=== PATIENT | female | born 1985 | race African-American/Black ===

== ENCOUNTER 2016-06-29 02:35 | Inpatient (IN) | payer OTHER ==
--- NOTE | ~2016-06-29 | PA ---
Unit #: [id number] #: [id number] Patient: CHEY BLEVINS [id number] [facility] [address] [place] [address] [id number] MR#: [id number] NAME: CHEY BLEVINS ROOM: [facility] Age: 31 Sex: F Admission Date: 06/29/2016 : 1985 Date of Assessment: 06/29/2016 Attending Physician: Hima Butler M.D. Admitting Physician: Hima Butler M.D. Primary Care Physician: Primary Care Physician No PSYCHIATRIC ASSESSMENT DATE OF SERVICE 06/29/2016. [facility] CHIEF COMPLAINT Drug abuse. HISTORY OF PRESENT ILLNESS Ms. Blevins is a 31-year-old woman, who abuses opioids and benzodiazepines. She was seen in the emergency room, where she had to have several doses of Narcan and then she was transferred to [facility] francie Zamarripa with no reports of suicidal ideation. PAST PSYCHIATRIC HISTORY As noted, Chey has a significant drug abuse history and has been using opioids and benzodiazepines to excess. She reports no previous inpatient treatment. FAMILY PSYCHIATRIC HISTORY There is no family history of mental illness or substance abuse. SOCIAL HISTORY The patient was reportedly born premature. She denied any history of childhood abuse or neglect. She is a single woman, who has a supportive family. She is currently staying with a friend and is unemployed. PAST MEDICAL HISTORY The patient has been diagnosed recently with hepatitis C. She stated that she had "cancer" in childhood, but has been in remission since the age of 6. She also suffers from osteoporosis. MEDICATIONS None currently. ALLERGIES No known medication allergies. SUBSTANCE USE HISTORY As noted, the patient has an extensive history of chemical dependence. This includes the use of opioids on a daily basis, occasional benzodiazepines, and occasional use of synthetic substances and cocaine. Unit #: [id number] #: [id number] Patient: CHEY BLEVINS MENTAL STATUS EXAMINATION The patient presented as a disheveled woman, who appeared her stated age. She was irritable, but cooperative with the examination. Her speech was spontaneous and easily understood. Her musculoskeletal examination was calm. Her mood was irritable with a congruent affect. She was alert and fully oriented. Memory and concentration were fair to good. Thought processes were goal directed with no active psychosis. She denied SI or HI. Insight and judgment were fair. Fund of knowledge and abstraction, fair. ASSETS AND LIABILITIES The patient is generally young and healthy and has a supportive family. Liabilities include difficulty maintaining sobriety. ADMITTING DIAGNOSES AXIS I: Opioid dependence with withdrawal, uncomplicated and benzodiazepine abuse. AXIS II: No diagnosis. AXIS III: None acute. AXIS IV: AXIS V: PSYCHIATRIC PLAN The patient was admitted and placed on the opioid detox protocol with coverage for benzodiazepines as well. She will enroll in dual diagnosis groups and activities. TREATMENT GOALS Establishment of sobriety, improvement in insight, and improvement in coping skills. DISCHARGE PLANNING Follow up with chemical dependence programing of the patient's choice. ESTIMATED LENGTH OF STAY 5 days. Dictated by... Hima Butler M.D. [place] TD: 08/14/2016 18:47 JOB #: [id number] Unit #: [id number] #: [id number] Patient: CHEY BLEVINS PSYCHIATRIC ASSESSMENT Page 1 of 1 X Hima Butler MD X PSYCHIATRIC ASSESSMENT
--- NOTE | ~2016-06-29 | HP ---
Unit #: [id number] #: [id number] Patient: CHEY BLEVINS [id number] [place] [address] [id number] MR#: [id number] NAME: CHEY BLEVINS ROOM: P178 Age: 30 Sex: F Admission Date: 06/29/2016 : 1985 Attending Physician: Hima Butler M.D. Admitting Physician: Hima Butler M.D. Primary Care Physician: Primary Care Physician No HISTORY AND PHYSICAL HISTORY OF PRESENT ILLNESS Chey is a 30 year old admitted to [facility] because of her polysubstance abuse which includes opioids and benzodiazepines. PAST MEDICAL HISTORY 1. Long history of illicit substance abuse to include snorting heroin. She also abuses benzodiazepines. 2. History of withdrawal seizures. 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 4. Peripheral neuropathy. 5. Bilateral footdrop. ALLERGIES No known drug allergies. SOCIAL HISTORY Smokes 1 pack per day. Denies alcohol. Admits to a long history of poly-illicit substance abuse. FAMILY HISTORY Medically noncontributory. REVIEW OF SYSTEMS CONSTITUTIONAL: No fever or chills. HEENT: Denies any sore throat, ear pain or runny nose. CARDIOVASCULAR: Denies chest pain, irregular heart rhythm or palpitations. CHEST: Denies shortness of breath or cough. No hemoptysis. GASTROINTESTINAL: Denies nausea, vomiting, diarrhea or chronic constipation. ENDOCRINE: Denies history of increased thirst or urination. No recent significant weight loss or gain. GENITOURINARY: Denies dysuria, frequency, or hematuria. SKIN: Denies any rashes. HEMATOLOGIC: Denies history of increased bleeding or bruising. MUSCULOSKELETAL: Denies any hot, swollen joints. No generalized muscle pain. NEUROLOGIC: Denies problems with vision or speech. No frequent, severe headaches. No numbness, tingling or weakness in any extremities. Denies loss of bladder or bowel control. CURRENT MEDICATIONS Detox protocol. Unit #: [id number] #: [id number] Patient: CHEY BLEVINS PHYSICAL EXAMINATION GENERAL: Alert, thin, in no apparent distress. VITAL SIGNS: Blood pressure 100/58, heart rate 70, respirations 16, temperature 98.6. WEIGHT: 105. HEIGHT: 5 feet 0 inches. SKIN: Warm and dry without rash or lesion. HEENT: Normocephalic. TMs not viewed. Oral and nasal passages clear. Conjunctivae clear. PERRLA. EOMs intact. NECK: Supple without lymphadenopathy or thyromegaly. HEART: Regular rate and rhythm without murmur. LUNGS: Clear. ABDOMEN: Soft, nontender. : Not done. EXTREMITIES: No evidence of cyanosis, clubbing or edema. Moves her upper extremities without focal deficit. She moves her lower extremities but it is apparent from her gait that she has a bilateral footdrop. NEUROLOGICAL: Grossly within normal limits. Cranial Nerves: II: Visual samaon are intact. III, IV AND : Extraocular movements are intact. Pupils are equal, round and reactive to light. V: Facial sensation is grossly normal. VII: Facial movements and expression are normal. VIII: Auditory acuity grossly intact. IX, X: Uvula is midline. Phonation is normal. XI: Patient shrugs shoulders and turns head normally. XII: Tongue protrudes in the midline. Sensory and Motor Function: Sensory is decreased in the lower extremities. She has bilateral footdrop with significant muscle wasting in both lower extremities. Coordination: Gait is abnormal because of her footdrop. Deep Tendon Reflexes: 1+ in the upper extremities. Scant to absent in the lower extremities. IMPRESSION Psychiatric admission. RECOMMENDATIONS PSYCHIATRIC: Per psychiatrist. MEDICAL: See no contraindications to participate in facility's activities. MEDICAL PROGNOSIS Good. MEDICAL CONDITION Stable. Dictated by... Citlali Messer P.A.-C. for [place] Arias/adithya TD: 06/29/2016 22:47 JOB #: [id number] Unit #: [id number] #: [id number] Patient: CHEY BLEVINS HISTORY AND PHYSICAL Page 1 of 1 X Citlali Messer HISTORY AND PHYSICAL
--- NOTE | ~2016-06-29 | DS ---
Unit #: [id number] #: [id number] Patient: CHEY BLEVINS [id number] [facility] [address] [place] [address] [id number] MR#: [id number] NAME: CHEY BLEVINS ROOM: P1 Age: 31 Sex: F Admission Date: 06/29/2016 : 1985 Discharge Date: 06/30/2016 Attending Physician: Hima Butler M.D. Primary Care Physician: Primary Care Physician No DISCHARGE SUMMARY REASON FOR ADMISSION Chey is a 31-year woman who came in reporting increased use of heroin and had some suicidal ideation. She was unable to contract for safety in the outpatient setting and was admitted for stabilization. DIAGNOSTIC STUDIES LABORATORY DATA: Please see hospital chart. HOSPITAL COURSE Patient was admitted and placed on the benzodiazepine detox protocol with the addition of Neurontin for opiate detox. The patient was only briefly in the hospital, reporting the next day that she was "ready to go" and requesting discharge against medical advice. She said that she would stay with her mother and denied further suicidal ideation, intent, or plan. After she was seen by her social worker school and the warehouse assistant it was felt she was able to give a reliable contract for safety, and she was discharged in stable condition. DISCHARGE DIAGNOSES AXIS I: Opiate dependence. Benzodiazepine abuse. AXIS II: Borderline traits. AXIS III: Urinary tract infection. DISCHARGE INSTRUCTIONS Follow up with chemical dependence treatment of the patient's choice and with primary care physician. DISCHARGE MEDICATIONS No medications were provided. The patient was to continue on Bactrim DS until gone for her UTI as prescribed prior to hospitalization. CONDITION ON DISCHARGE Fair. PROGNOSIS Fair. DIET AND ACTIVITY Ad teresa Unit #: [id number] #: [id number] Patient: CHEY BLEVINS Dictated by... [place] EsquedaH/bzg TD: 08/16/2016 08:44 JOB #: [id number] DISCHARGE SUMMARY Page 1 of 1 X Hima Butler MD X DISCHARGE SUMMARY
== END 2016-06-30 17:45 | disposition left against medical advice (07) | DRG 894 ==
LOC: P1E 02:35
DX: F13.20 Sedative, hypnotic or anxiolytic dependence, uncomplicated (principal); B19.20 Unspecified viral hepatitis C without hepatic coma; F41.1 Generalized anxiety disorder; F17.210 Nicotine dependence, cigarettes, uncomplicated; Z56.0 Unemployment, unspecified
CPT/HCPCS: 86592